=== PATIENT | male | born 1940 | race Caucasian/White ===

== ENCOUNTER → 2018-03-25 | Emergency (ER) | payer BC, OTHER ==
[~2018-03-25] MED LIST: Ciprofloxacin 500 MG TAB ONE; Phenazopyridine HCl 97.5 MG TABLET ONE
[2018-03-25 10:36] LABS: Bilirubin Negative (Negative); Blood, Urine Negative (Negative); Clarity Clear (Clear); Glucose, Urine (Dipstick) 500 mg/dL (Negative); Leukocyte Negative (Negative); Protein, Urine (Dipstick) Negative (Neg-Trace); Urobilinogen 0.2 mg/dL (0.2-1.0)
[2018-03-25 10:42] LABS: RBC/HPF 0-3 HPF (0-3)
[2018-03-25 10:43] LABS: Bacteria/HPF Rare-Few HPF (None Seen); Nitrite Unable to Interpret (Negative); Squamous Epithelial 0-3 HPF (0-3); WBC/HPF 0-3 HPF (0-3)
== END ==
LOC: MADERS 09:56
DX: R30.0 Dysuria (principal); M54.5 Low back pain; E11.9 Type 2 diabetes mellitus without complications; K21.9 Gastro-esophageal reflux disease without esophagitis; I10 Essential (primary) hypertension; M19.90 Unspecified osteoarthritis, unspecified site; Z85.46 Personal history of malignant neoplasm of prostate
CPT/HCPCS: 36416; 81001; 99283

== ENCOUNTER 2019-05-29 16:46 | Emergency (ER) | payer BC ==
[~2019-05-29 16:46] MED LIST changes: -Ciprofloxacin 500 MG TAB ONE; -Phenazopyridine HCl 97.5 MG TABLET ONE; +Sodium Chloride Irrig Solution 250 ML BOT ONE
--- NOTE | 2019-05-29 17:24 | CT ---
Exam: Head CT without contrast HISTORY: Fall. Pain. COMPARISON: 11/30/2018 FINDINGS: Hemorrhage: No intraparenchymal hemorrhage or extra-axial hematoma. Brain parenchyma: Stable malacic change involving the right cerebrum. Stable white matter hypodensiti es due to malacia as well as chronic small vessel ischemic changes. 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 Ventricular system: Ventricles and sulci are patent and symmetric. Calvarium: Intact. Sinuses and mastoid air cells: Adequate aeration. There is soft tissue swelling, hematoma and subcutaneous emphysema lateral to the left orbit. IMPRESSION: 1. No intracranial posttraumatic sequelae 2. Left periorbital posttraumatic change. Transcribed Date/Time: 05/29/2019 5:51 PM
--- NOTE | 2019-05-29 17:28 | CT ---
Exam: CT cervical spine without contrast HISTORY: Trauma. Pain. COMPARISON: None FINDINGS: No craniocervical dissociation. Appropriate alignment of the lateral masses of C1 and C2. Intact odon toid process Appropriate alignment of the facets. Stable grade 1 anterolisthesis of C2 upon C3, grade 1 anterolisthesis of C4 upon C5 and stable grade 1 anterolisthesis of C7 upon T1. Soft tissue neck structures: No mass, lymphadenopathy or hematoma. No prevertebral soft tissue swelli ng. 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 Central spinal canal: Varying degrees of central canal stenosis and neural foraminal narrowing due to degenerative change. Evaluation is limited by technique. Vertebral bodies: Cervical spine vertebral body height is maintained. No fracture. IMPRESSION: 1. No cervical spine fracture 2. Stable degenerative changes of the cervical spine. Transcribed Date/Time: 05/29/2019 5:55 PM
--- NOTE | 2019-05-29 17:31 | CT ---
Exam: Postcontrast maxillofacial CT HISTORY: Fall. Pain. Trauma FINDINGS: There is left periorbital soft tissue swelling and hematoma. There is evidence of subcutane ous emphysema likely due to soft tissue laceration Bilateral ocular lenses are appropriately located. Both globes are intact. Retrobulbar fat is preserv ed. Osseous margins of the orbits are preserved. No evidence of the orbital floor or orbital wall fracture. Symmetric attenuation of the optic nerves and ocular rectus muscles Zygomatic arches are intact. Pterygoid plates are intact. Adequate aeration visualized paranasal sinuses and mastoid air cells. Maxilla and mandible are intact. No posttraumatic change. Bilaterally, osteomeatal complexes are patent. Nasal septum is intact with slight rightward deviation . Yadira bullosa of the right superior turbinate. Limited evaluation of the alimentary canal by artifact. No obvious mass in the oral cavity. Midline fatty raphae of the tongue is preserved. IMPRESSION: 1. No evidence of a maxillofacial fracture. 2. There is posttraumatic change in the lateral left periorbital soft tissues. Transcribed Date/Time: 05/29/2019 5:54 PM
[2019-05-29] MEDS ORDERED: Lidocaine 1% w/Epinephrine 1:100K 20 ML VIAL ONE (17:49)
[2019-05-29] MEDS ORDERED: Bacitracin 1 PK ONE (18:02)
== END 2019-05-29 18:18 | disposition home or self-care (01) ==
LOC: MADERS 16:46
DX: S01.112A Laceration without foreign body of left eyelid and periocular area, initial encounter (principal); E11.9 Type 2 diabetes mellitus without complications; I10 Essential (primary) hypertension; K21.9 Gastro-esophageal reflux disease without esophagitis; M19.90 Unspecified osteoarthritis, unspecified site; W05.0XXA Fall from non-moving wheelchair, initial encounter; Z86.73 Personal history of transient ischemic attack (TIA), and cerebral infarction without residual deficits; Z79.899 Other long term (current) drug therapy; Z79.84 Long term (current) use of oral hypoglycemic drugs
CPT/HCPCS: 12051; 70450; 70486; 72125; J2001

== ENCOUNTER 2019-09-27 20:29 | Observation (INO) | payer BC ==
[2019-09-27] MEDS ORDERED: Acetaminophen 325 MG TAB ONE (20:46)
[2019-09-27 20:54] LABS: #Basophils 0.1 thou/uL (0.0-0.2); #Eosinphils 0.2 thou/uL (0.0-0.7); #Lymphocytes 0.8 thou/uL (1.20-3.40); #Monocytes 0.7 thou/uL (0.11-0.59); #Neutrophils 5.5 thou/uL (1.40-6.50); %Eosinophils 2.3 % (0.0-10.0); %Monocytes 9.8 % (0.0-10.0); %Neutrophils 75.9 % (42.0-75.0); Hemoglobin 13.6 g/dL (14.0-18.0); Mean Corpuscular HGB CONC 33.4 g/dL (32.0-36.0); Mean Corpuscular Hemoglobin 29.7 pg (27.0-31.0); Mean Corpuscular Volume 88.9 fL (78.0-98.0); Mean Platelet Volume 8.9 fL (7.4-10.4); Platelet Count 151 thou/uL (130-400); RBC Distribution Width 12.3 % (11.5-14.5); Red Blood Cell (RBC) Count 4.59 mill/uL (4.70-6.10); White Blood Cell (WBC) Count 7.2 thou/uL (4.8-10.8)
--- NOTE | 2019-09-27 20:55 | RAD ---
EXAM: Single view of the chest HISTORY: Fever COMPARISON: 11/21/2018 FINDINGS: Single view of the chest shows a normal sized cardiomediastinal silhouette. There is no lizzie dence of consolidation, mass, or pleural effusion. The bones are unremarkable. IMPRESSION: No evidence of acute cardiopulmonary disease
[2019-09-27 21:14] LABS: ALT (SGPT) 39 U/L (8-55); AST (SGOT) 38 U/L (5-34); Albumin 3.5 g/dL (3.4-4.8); Alkaline Phosphatase 106 U/L (40-110); Anion Gap 14 mmol/L (10-20); BUN (Urea Nitrogen) 13 mg/dL (8.4-25.7); Bilirubin, Total 1.2 mg/dL (0.2-1.2); Calc. Creatinine Clearance 0 mL/min (70-130); Calcium 8.8 mg/dL (7.8-10.44); Carbon Dioxide 24 mmol/L (23-31); Chloride 103 mmol/L (98-107); Estimated GFR-MDRD 90; Globulin 2.9 g/dL (2.4-3.5); Glucose 163 mg/dL (83-110); Lipase 12 U/L (8-78); Potassium 3.9 mmol/L (3.5-5.1); Protein, Total 6.4 g/dL (5.8-8.1); Sodium 137 mmol/L (136-145)
--- NOTE | 2019-09-27 21:19 | CT ---
CT Stone Protocol: 09/27/2019 8:36 PM HISTORY: Bilateral flank pain COMPARISON: 06/13/2013 TECHNIQUE: Multiple contiguous axial images were obtained and a CT of the abdomen and pelvis without IV contrast . Coronal and sagittal reformats were performed. FINDINGS: This examination is limited for the evaluation of solid organs and vascular structures due to the lac k of intravenous contrast. Lower Chest: within normal limits. Abdomen: Liver: within normal limits. Bile Ducts: Normal caliber. Gallbladder: No calcified gallstones. Normal caliber wall. Pancreas: within normal limits. Spleen: within normal limits. Adrenals: within normal limits. Kidneys: A hypodensity in the superior pole of the right kidney likely represents a cyst. No renal ca lcifications are seen. Pelvis: Reproductive Organs: No pelvic masses.. The patient appears be status post prostatectomy. Ureters: within normal limits. No calcifications along the course of the ureters. Bladder: within normal limits. Bowel: Normal caliber. Mesenteric Lymph Nodes: No enlarged mesenteric lymph nodes. Peritoneum: No ascites or free air, no fluid collection. Vessels: Normal caliber aorta . Atherosclerotic calcifications in the aorta. Retroperitoneum: within normal limits. Abdominal Wall: within normal limits. Bones: Degenerative changes in the spine. IMPRESSION: 1. No evidence of acute intraabdominal or pelvic abnormality. 2. Right renal cyst
[2019-09-27 21:44] LABS: Bilirubin Negative (Negative); Blood, Urine Moderate (Negative); Clarity Cloudy (Clear); Glucose, Urine (Dipstick) Negative (Negative); Leukocyte Moderate (Negative); Nitrite Positive (Negative); Protein, Urine (Dipstick) 30 mg/dL (Neg-Trace); Urobilinogen 0.2 mg/dL (Less than 2)
[2019-09-27 21:49] LABS: RBC/HPF Greater than 50 HPF (0-3); WBC/HPF Greater Than 50 HPF (0-3)
[2019-09-27 21:50] LABS: Bacteria/HPF 4+ HPF (None Seen); Squamous Epithelial 0-3 HPF (0-3)
[2019-09-27] MEDS ORDERED: cefTRIAXone\\ROCEPHIN 1 GM VIAL ONE (22:00)
[2019-09-27] MEDS ORDERED: Sodium Chloride 0.9% 100 ML ONE (22:00)
[2019-09-27 23:57] VITALS: BMI 27.1
[2019-09-28] MEDS ORDERED: Ondansetron ODT 4 MG TAB SL PRN (01:27)
[2019-09-28] MEDS ORDERED: Ibuprofen 600 MG TAB PO PRN (01:28)
[2019-09-28] MEDS ORDERED: Sodium Chloride 0.9% 1,000 ML IV SCH (01:30)
[2019-09-28 05:24] LABS: Band 6 % (5-11); Hemoglobin 12.7 g/dL (14.0-18.0); Lymphocytes 36 % (21-51); MDiff Complete? YES; Mean Corpuscular HGB CONC 33.4 g/dL (32.0-36.0); Mean Corpuscular Hemoglobin 29.7 pg (27.0-31.0); Mean Corpuscular Volume 88.9 fL (78.0-98.0); Mean Platelet Volume 8.8 fL (7.4-10.4); Monocytes 10 % (0-10); Neutrophil 40 % (42-75); Platelet Count 153 thou/uL (130-400); Platelet Morphology Comment Appears Adequate; RBC Morphology Normal; Reactive Lymphocytes 8 % (0-10); Red Blood Cell (RBC) Count 4.27 mill/uL (4.70-6.10)
[2019-09-28 05:28] LABS: Anion Gap 12 mmol/L (10-20); BUN (Urea Nitrogen) 13 mg/dL (8.4-25.7); Calc. Creatinine Clearance 91 mL/min (70-130); Calcium 8.5 mg/dL (7.8-10.44); Carbon Dioxide 25 mmol/L (23-31); Chloride 104 mmol/L (98-107); Estimated GFR-MDRD Greater than 90; Glucose 137 mg/dL (83-110); Potassium 3.7 mmol/L (3.5-5.1); Sodium 137 mmol/L (136-145)
[2019-09-28] MEDS: Gabapentin 300 MG CAP PO SCH ×2 (08:38→20:58)
[2019-09-28] MEDS: glipiZIDE 5 MG TAB PO SCH (08:38)
[2019-09-28] MEDS: Atorvastatin Calcium 40 MG TAB PO SCH (08:38)
[2019-09-28] MEDS: cloNIDine 0.1 MG TAB PO SCH ×2 (08:38→20:58)
[2019-09-28] MEDS ORDERED: FLU VACC TS2019-20(65YR UP)/PF 180 MCG/0.5 ML SYRINGE IM ONE (09:00)
[2019-09-28] MEDS ORDERED: cefTRIAXone\\ROCEPHIN 1 GM in Sodium Chloride 0.9% 100 ML IVPB SCH (22:00)
[2019-09-29] MEDS: glipiZIDE 5 MG TAB PO SCH (08:22)
[2019-09-29] MEDS: cloNIDine 0.1 MG TAB PO SCH (08:22)
[2019-09-29] MEDS: Gabapentin 300 MG CAP PO SCH (08:22)
[2019-09-29] MEDS: Atorvastatin Calcium 40 MG TAB PO SCH (08:22)
[2019-09-29 12:13] VITALS: BP 140/72; TEMP 100.1
== END 2019-09-29 15:20 | disposition home or self-care (01) ==
LOC: MADERS 20:29 → MADMS 22:22
PROVIDERS: ADMIT Family Medicine; ATTEND Family Medicine
DX: N12 Tubulo-interstitial nephritis, not specified as acute or chronic (principal); E11.9 Type 2 diabetes mellitus without complications; I10 Essential (primary) hypertension; M19.90 Unspecified osteoarthritis, unspecified site; K21.9 Gastro-esophageal reflux disease without esophagitis; I69.354 Hemiplegia and hemiparesis following cerebral infarction affecting left non-dominant side; Q61.01 Congenital single renal cyst; Z79.84 Long term (current) use of oral hypoglycemic drugs; Z79.899 Other long term (current) drug therapy; Z88.2 Allergy status to sulfonamides; Z88.5 Allergy status to narcotic agent; Z88.8 Allergy status to other drugs, medicaments and biological substances; Z91.041 Radiographic dye allergy status; Z91.048 Other nonmedicinal substance allergy status
CPT/HCPCS: 36415; 71045; 74176; 80048; 80053; 81003; 81015; 83605; 83690; 85007; 85025; 85027; 87040; 87077; 87086; 87186; 87804; 96361; 96365; 96376; G0378; J0696; J3490; J7050

== ENCOUNTER 2020-05-04 14:02 | Outpatient (CLI) | payer MEDICARE ==
[2020-05-04 14:48] LABS: Bilirubin Negative (Negative); Blood, Urine Negative (Negative); Clarity Clear (Clear); Glucose, Urine (Dipstick) 250 mg/dL (Negative); Leukocyte Negative (Negative); Nitrite Negative (Negative); Protein, Urine (Dipstick) Negative (Neg-Trace); Urobilinogen 0.2 mg/dL (Less than 2)
[2020-05-04 15:04] LABS: ALT (SGPT) 35 U/L (8-55); AST (SGOT) 30 U/L (5-34); Albumin 4.1 g/dL (3.4-4.8); Alkaline Phosphatase 116 U/L (40-110); Anion Gap 15 mmol/L (10-20); BUN (Urea Nitrogen) 8 mg/dL (8.4-25.7); Bilirubin, Total 0.7 mg/dL (0.2-1.2); Calc. Creatinine Clearance 0 mL/min (70-130); Carbon Dioxide 28 mmol/L (23-31); Cardiac Risk 2.5 (Less than 4.5); Chloride 99 mmol/L (98-107); Cholesterol 111 mg/dl (< 200 Desired); Estimated GFR-MDRD Greater than 90; Globulin 2.6 g/dL (2.4-3.5); Glucose 162 mg/dL (83-110); HDL Cholesterol 45 mg/dL (>60 Neg Risk); LDL Cholesterol, Calculated 46 mg/dL; Potassium 4.3 mmol/L (3.5-5.1); Protein, Total 6.7 g/dL (5.8-8.1); Sodium 138 mmol/L (136-145); Triglycerides 99 mg/dL (Less than 150)
[2020-05-04 15:20] LABS: Bacteria/HPF 1+ HPF (None Seen); Squamous Epithelial 0-3 HPF (0-3); WBC/HPF 0-3 HPF (0-3)
[2020-05-04 15:37] LABS: #Basophils 0.1 thou/uL (0.0-0.2); #Eosinphils 1.4 thou/uL (0.0-0.7); #Lymphocytes 2.8 thou/uL (1.20-3.40); #Monocytes 0.7 thou/uL (0.11-0.59); #Neutrophils 4.2 thou/uL (1.40-6.50); %Basophils 1.3 % (0.0-1.0); %Eosinophils 15.3 % (0.0-10.0); %Lymphocytes 30.6 % (21.0-51.0); %Monocytes 7.7 % (0.0-10.0); %Neutrophils 45.2 % (42.0-75.0); Mean Corpuscular HGB CONC 32.2 g/dL (32.0-36.0); Mean Corpuscular Hemoglobin 29.8 pg (27.0-31.0); Mean Corpuscular Volume 92.6 fL (78.0-98.0); Mean Platelet Volume 9.2 fL (7.4-10.4); Platelet Count 240 thou/uL (130-400); Red Blood Cell (RBC) Count 5.03 mill/uL (4.70-6.10); White Blood Cell (WBC) Count 9.2 thou/uL (4.8-10.8)
[2020-05-04 16:14] LABS: RBC/HPF 0-3 HPF (0-3)
[2020-05-04 21:46] LABS: Hemoglobin A1c 7.4 % (4.0-6.0)
[2020-05-04 21:56] LABS: Creatinine, Urine 45.15 mg/dL (63-166); Microalbumin Urine Less than 1.0 mg/dL (0.5-50.0)
== END 2020-05-04 14:03 | disposition home or self-care (01) ==
LOC: MADLABSP 14:02
PROVIDERS: ATTEND Family Medicine
DX: L89.152 Pressure ulcer of sacral region, stage 2 (principal); E11.49 Type 2 diabetes mellitus with other diabetic neurological complication; R81 Glycosuria
CPT/HCPCS: 80053; 80061; 81001; 82043; 83036; 85025

== ENCOUNTER 2020-10-26 14:56 | Outpatient (CLI) | payer MEDICARE ==
[2020-10-26 15:04] LABS: Bilirubin Negative (Negative); Blood, Urine Negative (Negative); Clarity Clear (Clear); Glucose, Urine (Dipstick) Negative (Negative); Ketone, Urine Negative (Negative); Leukocyte Negative (Negative); Nitrite Negative (Negative); Protein, Urine (Dipstick) Negative (Neg-Trace); Urobilinogen 0.2 mg/dL (Less than 2)
== END 2020-10-26 14:57 | disposition home or self-care (01) ==
LOC: MADLAB 14:56
PROVIDERS: ATTEND Family Medicine
DX: I69.354 Hemiplegia and hemiparesis following cerebral infarction affecting left non-dominant side (principal); L89.150 Pressure ulcer of sacral region, unstageable; E11.42 Type 2 diabetes mellitus with diabetic polyneuropathy; R15.9 Full incontinence of feces; D72.110 Idiopathic hypereosinophilic syndrome [IHES]; C61 Malignant neoplasm of prostate
CPT/HCPCS: 81003; 84403; G0103

== ENCOUNTER 2020-11-03 11:20 | Outpatient (CLI) | payer MEDICARE ==
[2020-11-03 13:19] LABS: Band 2 % (5-11); Eosinophils 7 % (0-10); Lymphocytes 30 % (21-51); MDiff Complete? YES; Mean Corpuscular HGB CONC 33.3 g/dL (32.0-36.0); Mean Corpuscular Hemoglobin 30.9 pg (27.0-31.0); Mean Corpuscular Volume 92.6 fL (78.0-98.0); Mean Platelet Volume 9.4 fL (7.4-10.4); Monocytes 10 % (0-10); Neutrophil 51 % (42-75); Platelet Count 196 thou/uL (130-400); Platelet Morphology Comment Appears Adequate; RBC Distribution Width 11.8 % (11.5-14.5); Red Blood Cell (RBC) Count 4.86 mill/uL (4.70-6.10); White Blood Cell (WBC) Count 8.9 thou/uL (4.8-10.8)
[2020-11-03 17:15] LABS: Hemoglobin A1c 7.4 % (4.0-6.0)
[2020-11-03 19:37] LABS: Follow-up Chemistry Comp? YES; Follow-up Result - Chemistry REPORT FAXED
== END 2020-11-03 11:21 | disposition home or self-care (01) ==
LOC: MADLAB 11:20
PROVIDERS: ATTEND Family Medicine
DX: D72.110 Idiopathic hypereosinophilic syndrome [IHES] (principal); E11.49 Type 2 diabetes mellitus with other diabetic neurological complication
CPT/HCPCS: 83036; 85007; 85027

== ENCOUNTER 2021-12-12 15:35 | Outpatient (CLI) | payer MEDICARE | END 2021-12-12 15:36 | disposition home or self-care (01) | LOC: MADRAD 15:35 | PROVIDERS: ATTEND Family Medicine | DX: M25.551 Pain in right hip (principal); S72.142A Displaced intertrochanteric fracture of left femur, initial encounter for closed fracture ==

== ENCOUNTER 2023-11-11 12:02 | Emergency (ER) | payer MEDICARE ==
[2023-11-11] MEDS ORDERED: Sodium Chloride 0.9% 250 ML 250 ML ONE (12:46)
[2023-11-11] MEDS ORDERED: Vancomycin 1 GM VIAL ONE (12:46)
[2023-11-11 13:07] LABS: Hematocrit 37.7 % (42.0-52.0); Hemoglobin 12.4 g/dL (14.0-18.0); Mean Corpuscular HGB CONC 32.7 g/dL (32.0-36.0); Mean Corpuscular Hemoglobin 30.4 pg (27.0-31.0); Mean Platelet Volume 9.3 fL (7.4-10.4); Platelet Count 222 10x3/uL (130-400); RBC Distribution Width 13.6 % (11.5-14.5); Red Blood Cell (RBC) Count 4.03 mill/uL (4.70-6.10); White Blood Cell (WBC) Count 13.9 10x3/uL (4.8-10.8)
[2023-11-11 13:08] LABS: Eosinophils 2 % (0-10); MDiff Complete? YES; Manual Diff?? YES; Monocytes 9 % (0-10); Neutrophil 67 % (42-75)
[2023-11-11 13:09] LABS: ALT (SGPT) 41 U/L (8-55); AST (SGOT) 38 U/L (5-34); Albumin 3.1 g/dL (3.4-4.8); Alkaline Phosphatase 132 U/L (40-110); Anion Gap 13 mmol/L (10-20); BUN (Urea Nitrogen) 10 mg/dL (8.4-25.7); Band 12 % (5-11); Bilirubin, Total 0.8 mg/dL (0.2-1.2); Calc. Creatinine Clearance 0 mL/min (70-130); Calcium 8.8 mg/dL (7.8-10.44); Carbon Dioxide 25 mmol/L (23-31); Chloride 92 mmol/L (98-107); Estimated GFR 85; Globulin 3.3 g/dL (2.4-3.5); Glucose 315 mg/dL (83-110); Lymphocytes 10 % (21-51); Potassium 3.7 mmol/L (3.5-5.1); Protein, Total 6.4 g/dL (5.8-8.1); RBC Morph Comment Within Normal Limits; Sodium 126 mmol/L (136-145)
[2023-11-11 13:10] LABS: Platelet Adequacy Comment Appears Adequate
[2023-11-11 14:15] LABS: Bilirubin Negative (Negative); Blood, Urine Negative (Negative); Clarity Clear (Clear); Glucose, Urine (Dipstick) 500 mg/dL (Negative); Ketone, Urine Negative (Negative); Leukocyte Small (Negative); Nitrite Negative (Negative); Protein, Urine (Dipstick) Negative (Neg-Trace); Urobilinogen 0.2 mg/dL (Less than 2)
[2023-11-11 14:18] LABS: Specific Gravity, Urine 1.007 (1.002-1.036)
[2023-11-11 14:21] LABS: CAUTI Indications for Culture Dysuria,urgency,freq; RBC/HPF 0-3 HPF (0-3)
[2023-11-11 14:22] LABS: Bacteria/HPF Rare-Few HPF (None Seen)
[2023-11-11 14:23] LABS: Urine Culture Reflex No No
[2023-11-11] MEDS ORDERED: cefTRIAXone (ROCEPHIN) 2 GM VIAL ONE (14:27)
[2023-11-11] MEDS ORDERED: Sodium Chloride 0.9% 100 ML ONE (14:27)
[2023-11-11] MEDS ORDERED: Sodium Chloride 0.9% 1,000 ML ONE (15:19)
[2023-11-11] MEDS ORDERED: Clindamycin/D5W 600 mg/50 ml Premix Bag ONE (16:23)
[2023-11-11 22:46] LABS: Potassium, Urine Less than 10.0 mmol/L; Sodium, Urine Less than 20 mmol/L (Not Available)
== END 2023-11-11 18:39 | disposition short-term general hospital (02) ==
LOC: MADERS 12:02
DX: L03.116 Cellulitis of left lower limb (principal); E11.9 Type 2 diabetes mellitus without complications; E78.5 Hyperlipidemia, unspecified; I10 Essential (primary) hypertension; K21.9 Gastro-esophageal reflux disease without esophagitis; Z79.899 Other long term (current) drug therapy; Z79.82 Long term (current) use of aspirin
CPT/HCPCS: 80053; 81001; 82436; 83605; 83880; 83930; 83935; 84133; 84300; 85025; 86140; 87040; 87086; 96365; 96367; J0696; J3370; J3490; J7050